=== PATIENT | male | born 1995 | race Caucasian/White ===

== ENCOUNTER 2018-10-22 08:52 | Outpatient (CLI) | payer OTHER ==
--- NOTE | 2018-10-22 09:11 | RAD ---
XR Hand Rt 2 View HISTORY: Right hand pain FINDINGS: The distal carpal bones and the bones of the hand are unremarkable. There is abnormal contour of the distal radius. The radiocarpal space is not satisfactorily visualize d. This may either be due to positioning or deformity secondary to remote trauma. Dedicated 3 views of the right pelvis should be performed.
--- NOTE | 2018-10-22 09:15 | RAD ---
EXAM: 2 views of the right foot HISTORY: Foot pain COMPARISON: None FINDINGS: 2 views of the right foot shows no evidence of acute fracture or dislocation. No soft tissu e swelling is seen. No degenerative changes are present. IMPRESSION: No evidence of acute osseous abnormality.
--- NOTE | 2018-10-22 09:16 | RAD ---
EXAM: 2 views of the left foot HISTORY: Foot pain COMPARISON: None FINDINGS: 2 views of the left foot shows no evidence of acute fracture or dislocation. No soft tissue swelling is seen. No degenerative changes are present. IMPRESSION: No evidence of acute osseous abnormality.
== END 2018-10-22 08:53 | disposition home or self-care (01) ==
LOC: MADRAD 08:52
PROVIDERS: ATTEND Orthopaedic Surgery
DX: M19.90 Unspecified osteoarthritis, unspecified site (principal)

== ENCOUNTER 2020-12-29 18:08 | Emergency (ER) | payer OTHER ==
[2020-12-29] MEDS ORDERED: Morphine 2 MG/ML VIAL ONE (18:59)
[2020-12-29] MEDS ORDERED: Boostrix 0.5 ML (Tdap) VIAL ONE (19:33)
[2020-12-29] MEDS ORDERED: Sodium Chloride 0.9% 1,000 ML ONE (19:33)
[2020-12-29] MEDS ORDERED: Sodium Chloride 0.9% 50 ML ONE (19:33)
[2020-12-29] MEDS ORDERED: Promethazine HCl 25 MG/ML VIAL ONE (19:33)
== END 2020-12-29 20:21 | disposition home or self-care (01) ==
LOC: MADERS 18:08
DX: S06.0X9A Concussion with loss of consciousness of unspecified duration, initial encounter (principal); R11.10 Vomiting, unspecified; Z23 Encounter for immunization; V80.010A Animal-rider injured by fall from or being thrown from horse in noncollision accident, initial encounter
CPT/HCPCS: 70450; 72125; 90715; 96374; 96375; J2270; J2550; J7050

== ENCOUNTER 2021-01-10 19:34 | Emergency (ER) | payer OTHER ==
[~2021-01-10 19:34] MED LIST: Iopamidol 370 76% 100 ML VIAL ONE
[2021-01-10] MEDS ORDERED: Prochlorperazine 10 MG/2 ML VIAL ONE (19:49)
[2021-01-10] MEDS ORDERED: Fentanyl 100 MCG/2 ML VIAL ONE (19:49)
[2021-01-10 20:04] LABS: #Basophils 0.1 thou/uL (0.0-0.2); #Eosinphils 0.2 thou/uL (0.0-0.7); #Lymphocytes 3.5 thou/uL (1.20-3.40); #Monocytes 0.8 thou/uL (0.11-0.59); #Neutrophils 8.7 thou/uL (1.40-6.50); %Basophils 0.7 % (0.0-1.0); %Eosinophils 1.4 % (0.0-10.0); %Lymphocytes 26.6 % (21.0-51.0); %Monocytes 5.7 % (0.0-10.0); %Neutrophils 65.8 % (42.0-75.0); Hemoglobin 15.3 g/dL (14.0-18.0); Mean Corpuscular HGB CONC 31.9 g/dL (32.0-36.0); Mean Corpuscular Hemoglobin 28.7 pg (27.0-31.0); Mean Corpuscular Volume 90.2 fL (78.0-98.0); Mean Platelet Volume 7.1 fL (7.4-10.4); Platelet Count 313 thou/uL (130-400); RBC Distribution Width 11.5 % (11.5-14.5); Red Blood Cell (RBC) Count 5.32 mill/uL (4.70-6.10); White Blood Cell (WBC) Count 13.2 thou/uL (4.8-10.8)
[2021-01-10] MEDS ORDERED: Sodium Chloride 0.9% 1,000 ML ONE (20:07)
[2021-01-10 20:18] LABS: ALT (SGPT) 735 U/L (8-55); AST (SGOT) 661 U/L (5-34); Albumin 4.4 g/dL (3.5-5.0); Alkaline Phosphatase 74 U/L (40-110); Anion Gap 17 mmol/L (10-20); BUN (Urea Nitrogen) 21 mg/dL (8.9-20.6); Calc. Creatinine Clearance 0 mL/min (70-130); Calcium 9.8 mg/dL (7.8-10.44); Carbon Dioxide 27 mmol/L (22-29); Chloride 102 mmol/L (98-107); Globulin 2.8 g/dL (2.4-3.5); Glucose 177 mg/dL (70-105); Potassium 3.1 mmol/L (3.5-5.1); Protein, Total 7.2 g/dL (6.0-8.3); Sodium 143 mmol/L (136-145)
[2021-01-10 20:32] LABS: Specific Gravity, Urine 1.029 (1.002-1.036)
[2021-01-10 20:33] LABS: Clarity Turbid (Clear); Leukocyte Unable to Interpret (Negative); pH, Urine 6.5 (5.0-9.0)
[2021-01-10 20:34] LABS: Nitrite Negative (Negative); Protein, Urine (Dipstick) Greater than 600 mg/dL (Neg-Trace)
[2021-01-10 20:35] LABS: Bilirubin Negative (Negative); Blood, Urine Large (Negative); Glucose, Urine (Dipstick) Negative (Negative); Ketone, Urine 5 mg/dL (Negative); Urobilinogen 0.2 mg/dL (Less than 2)
[2021-01-10 20:37] LABS: Bacteria/HPF None Seen HPF (None Seen); Renal Epithelial None Seen HPF (None Seen); Squamous Epithelial None Seen HPF (0-3); Transitional Epithelial None Seen HPF (None Seen); WBC/HPF 0-3 HPF (0-3)
[2021-01-10 20:38] LABS: Unclassified Crystals None Seen HPF (None Seen)
[2021-01-10 20:39] LABS: RBC/HPF Greater than 50 HPF (0-3)
[2021-01-10 20:49] LABS: PTT 27.6 sec (22.9-36.1)
== END 2021-01-10 21:00 | disposition short-term general hospital (02) ==
LOC: MADERS 19:34
DX: S36.116A Major laceration of liver, initial encounter (principal); S27.0XXA Traumatic pneumothorax, initial encounter; R31.9 Hematuria, unspecified; Z79.899 Other long term (current) drug therapy; W55.12XA Struck by horse, initial encounter
CPT/HCPCS: 71260; 74177; 80053; 81003; 81015; 83605; 85025; 85610; 85730; 96374; 96375; J0780; J3010; J7050; Q9967

== ENCOUNTER 2023-11-30 15:11 | Emergency (ER) | payer OTHER ==
[2023-11-30 16:14] LABS: Bilirubin Negative (Negative); Blood, Urine Negative (Negative); Clarity Clear (Clear); Glucose, Urine (Dipstick) Negative (Negative); Ketone, Urine Negative (Negative); Leukocyte Negative (Negative); Nitrite Negative (Negative); Protein, Urine (Dipstick) Negative (Neg-Trace); Specific Gravity, Urine 1.025 (1.005-1.030); Urobilinogen 0.2 mg/dL (Less than 2)
[2023-11-30 16:21] LABS: Bacteria/HPF Rare-Few HPF (None Seen); CAUTI Indications for Culture Pelvic or flank pain; Mucous/LPF Few LPF (<2+); RBC/HPF None Seen HPF (0-3); Squamous Epithelial 0-3 HPF (0-3); Urine Culture Reflex No No; WBC/HPF 0-3 HPF (0-3)
[2023-11-30 16:33] LABS: #Basophils 0.1 thou/uL (0.0-0.2); #Eosinphils 0.1 thou/uL (0.0-0.7); #Lymphocytes 1.6 thou/uL (1.20-3.40); #Monocytes 0.6 thou/uL (0.11-0.59); #Neutrophils 4.3 thou/uL (1.40-6.50); %Basophils 1.1 % (0.0-1.0); %Eosinophils 1.2 % (0.0-10.0); %Lymphocytes 23.4 % (21.0-51.0); %Monocytes 9.5 % (0.0-10.0); %Neutrophils 64.8 % (42.0-75.0); Hematocrit 49.4 % (42.0-52.0); Hemoglobin 15.4 g/dL (14.0-18.0); Mean Corpuscular HGB CONC 31.3 g/dL (32.0-36.0); Mean Corpuscular Hemoglobin 27.9 pg (27.0-31.0); Mean Corpuscular Volume 89.3 fl (78.0-98.0); Mean Platelet Volume 7.5 fL (7.4-10.4); Platelet Count 242 10x3/uL (130-400); RBC Distribution Width 11.5 % (11.5-14.5); Red Blood Cell (RBC) Count 5.53 mill/uL (4.70-6.10); White Blood Cell (WBC) Count 6.7 10x3/uL (4.8-10.8)
[2023-11-30 16:48] LABS: ALT (SGPT) 16 U/L (8-55); AST (SGOT) 22 U/L (5-34); Albumin 4.7 g/dL (3.5-5.0); Alkaline Phosphatase 62 U/L (40-110); Anion Gap 17 mmol/L (10-20); BUN (Urea Nitrogen) 22 mg/dL (8.9-20.6); Bilirubin, Total 1.4 mg/dL (0.2-1.2); Calc. Creatinine Clearance 0 mL/min (70-130); Calcium 9.8 mg/dL (7.8-10.44); Carbon Dioxide 25 mmol/L (22-29); Chloride 107 mmol/L (98-107); Estimated GFR 104; Globulin 2.8 g/dL (2.4-3.5); Glucose 100 mg/dL (70-105); Lipase 17 U/L (8-78); Potassium 3.5 mmol/L (3.5-5.1); Protein, Total 7.5 g/dL (6.0-8.3); Sodium 145 mmol/L (136-145)
[2023-11-30] MEDS ORDERED: Ciprofloxacin 500 MG TAB ONE (17:21)
[2023-11-30] MEDS ORDERED: metroNIDAZOLE 250 MG TAB ONE (17:22)
== END 2023-11-30 17:36 | disposition home or self-care (01) ==
LOC: MADERS 15:11
DX: K52.9 Noninfective gastroenteritis and colitis, unspecified (principal)
CPT/HCPCS: 74177; 80053; 81001; 83690; 84443; 85025; Q9967

== ENCOUNTER 2024-04-16 11:13 | Emergency (ER) | payer OTHER ==
[2024-04-16] MEDS ORDERED: Acetaminophen 500 MG TAB ONE (11:41)
[2024-04-16] MEDS ORDERED: Ketorolac Tromethamine 30 MG (1 mL) VIAL ONE (11:41)
[2024-04-16] MEDS ORDERED: Metoclopramide HCl 10 MG (2 mL) VIAL ONE (11:41)
[2024-04-16] MEDS ORDERED: Ondansetron PF 4 MG/2 ML Vial ONE (11:41)
[2024-04-16] MEDS ORDERED: Sodium Chloride 0.9% 1,000 ML ONE ×2 (11:41→12:57)
[2024-04-16 11:55] LABS: #Basophils 0.1 thou/uL (0.0-0.2); #Lymphocytes 0.5 thou/uL (1.20-3.40); #Monocytes 0.8 thou/uL (0.11-0.59); %Basophils 0.7 % (0.0-1.0); %Lymphocytes 4.7 % (21.0-51.0); %Monocytes 7.8 % (0.0-10.0); %Neutrophils 86.7 % (42.0-75.0); Hematocrit 45.2 % (42.0-52.0); Hemoglobin 14.7 g/dL (14.0-18.0); Mean Corpuscular HGB CONC 32.6 g/dL (32.0-36.0); Mean Corpuscular Hemoglobin 28.8 pg (27.0-31.0); Mean Corpuscular Volume 88.3 fl (78.0-98.0); Mean Platelet Volume 8.2 fL (7.4-10.4); Platelet Count 171 10x3/uL (130-400); RBC Distribution Width 11.2 % (11.5-14.5); Red Blood Cell (RBC) Count 5.12 mill/uL (4.70-6.10); White Blood Cell (WBC) Count 10.3 10x3/uL (4.8-10.8)
[2024-04-16 12:30] LABS: ALT (SGPT) 24 U/L (8-55); AST (SGOT) 18 U/L (5-34); Alkaline Phosphatase 64 U/L (40-110); Anion Gap 14 mmol/L (10-20); BUN (Urea Nitrogen) 13 mg/dL (8.9-20.6); Calc. Creatinine Clearance 0 mL/min (70-130); Carbon Dioxide 22 mmol/L (22-29); Chloride 103 mmol/L (98-107); Estimated GFR 104; Globulin 3.3 g/dL (2.4-3.5); Glucose 144 mg/dL (70-105); Potassium 3.3 mmol/L (3.5-5.1); Protein, Total 7.3 g/dL (6.0-8.3); Sodium 136 mmol/L (136-145)
[2024-04-16 13:33] LABS: Bilirubin Small (Negative); Blood, Urine Negative (Negative); Clarity Clear (Clear); Glucose, Urine (Dipstick) Negative (Negative); Ketone, Urine 15 mg/dL (Negative); Leukocyte Negative (Negative); Nitrite Negative (Negative); Protein, Urine (Dipstick) 100 mg/dL (Neg-Trace); Specific Gravity, Urine 1.025 (1.005-1.030)
[2024-04-16 13:44] LABS: Bacteria/HPF Rare-Few HPF (None Seen); CAUTI Indications for Culture Dysuria,urgency,freq; RBC/HPF 0-3 HPF (0-3); Squamous Epithelial 0-3 HPF (0-3); WBC/HPF 0-3 HPF (0-3)
[2024-04-16 13:45] LABS: Urine Culture Reflex No No
== END 2024-04-16 14:21 | disposition home or self-care (01) ==
LOC: MADERS 11:13
DX: B34.9 Viral infection, unspecified (principal); E86.0 Dehydration; I10 Essential (primary) hypertension; Z87.891 Personal history of nicotine dependence
CPT/HCPCS: 36415; 71045; 80053; 81001; 83605; 85025; 87040; 87081; 87428; 87430; 96361; 96374; 96375; J1885; J2405; J2765; J7030